=== PATIENT | male | born 1950 | race Two or more races ===

== ENCOUNTER 2022-10-08 14:07 | Inpatient (IN) | payer MEDICARE, MEDICAID ==
[~2022-10-08] VITALS: Ht 180.3 cm; Wt 138.4 kg
[2022-10-08] MEDS ORDERED: NS 1,000 ML IV ONE (14:50)
[2022-10-08 16:59] LABS: RSV AMPLIFICATION NEGATIVE (NEGATIVE)
[2022-10-08 17:11] LABS: VENOUS BASE EXCESS 0.2 (-2.0-2.0); VENOUS HCO3 24.9 MEQ/L (23.0-27.0); VENOUS O2 SATURATION 90.3 % (60.0-80.0); VENOUS PARTIAL PRESSURE CO2 40.4 mmHg (38.0-50.0); VENOUS PARTIAL PRESSURE O2 57.4 mmHg (30.0-50.0); VENOUS PH 7.407 UNITS (7.330-7.430); VENOUS STANDARD HCO3 24.5 MEQ/L; VENOUS TOTAL CO2 26.1 MEQ/L (24.0-28.0)
[2022-10-08 17:24] LABS: BASO % 0.4 % (0.0-1.0); EOS # 0.1 10^3/uL (0.0-0.5); EOS % 0.8 % (0.0-3.0); HEMATOCRIT 42.8 % (42.0-52.0); HEMOGLOBIN 14.2 g/dl (13.5-17.5); LYMPH # 0.6 10^3/uL (1.5-5.0); LYMPH % 6.2 % (24.0-44.0); MEAN CORPUSCULAR HGB CONC 33.2 g/dl (32.0-36.5); MEAN CORPUSCULAR VOLUME 93.4 fl (80.0-96.0); MONO # 0.5 10^3/uL (0.0-0.8); MONO % 4.9 % (2.0-8.0); NEUTROPHILS # 8.4 10^3/uL (1.5-8.5); NEUTROPHILS % 87.3 % (36.0-66.0); PLATELET COUNT, AUTOMATED 245 10^3/uL (150-450); RED BLOOD COUNT 4.58 10^6/uL (4.30-6.10); WHITE BLOOD COUNT 9.6 10^3/uL (4.0-10.0)
[2022-10-08 17:44] LABS: CK-MB VALUE MASS < 1.0 NG/ML (<3.6); LIPASE 35 U/L (12-53)
[2022-10-08 17:46] LABS: CPK CREATINE PHOSPHOKINASE 65 U/L (46-171); MB/CK RELATIVE INDEX 1.53 (< OR =4)
[2022-10-08 17:49] LABS: ALBUMIN 3.1 G/DL (3.2-5.2); ALKALINE PHOSPHATASE 69 U/L (46-116); ALT/SGPT 55 U/L (7.0-40); AST/SGOT 56 U/L (<34); BILIRUBIN,DIRECT 0.2 MG/DL (<0.4); BILIRUBIN,TOTAL 0.4 MG/DL (0.3-1.2); BLOOD UREA NITROGEN 21 MG/DL (9-23); CARBON DIOXIDE LEVEL 27 MMOL/L (20-31); CHLORIDE LEVEL 104 MMOL/L (98-107); CREATININE FOR GFR 1.09 MG/DL (0.70-1.30); GLOMERULAR FILTRATION RATE > 60.0 (>42); GLUCOSE, FASTING 135 MG/DL (74-106); MAGNESIUM LEVEL 1.9 MG/DL (1.8-2.4); POTASSIUM SERUM 4.3 MMOL/L (3.5-5.1); SODIUM LEVEL 139 MMOL/L (136-145); TOTAL PROTEIN 6.4 G/DL (5.7-8.2)
[2022-10-08 18:01] LABS: OSMOLALITY SERUM 292 MOSM/KG (280-301)
[2022-10-08 18:30] LABS: HEMOGLOBIN A1c 6.9 % (4.0-6.0)
[2022-10-08] MEDS ORDERED: FUROSEMIDE 40MG/4ML VIAL IV ONE (20:20)
[2022-10-08] MEDS: INSULIN LISPRO (NovoLOG) PER UNIT SC SCH (21:00)
[2022-10-08] MEDS ORDERED: ACETAMINOPHEN TAB 650MG DOSE (2X325MG) PO PRN (21:15)
[2022-10-08] MEDS ORDERED: GLUCAGON INJ 1MG VIAL SC PRN (21:25)
[2022-10-08] MEDS ORDERED: DEXTROSE 50% 50ML SYRINGE IV PRN (21:25)
[2022-10-08] MEDS ORDERED: GLUCOSE 4GM CHEW TABLET PO PRN (21:25)
[2022-10-08 23:11] VITALS: BP 126/61
[2022-10-08] MEDS ORDERED: METF-839 PO (23:15)
[2022-10-08] MEDS ORDERED: INSUDET SC (23:15)
[2022-10-08] MEDS ORDERED: CYAN100050 PO (23:15)
[2022-10-08] MEDS ORDERED: FENO160T10 PO (23:15)
[2022-10-08] MEDS ORDERED: FURO40TA2 PO (23:15)
[2022-10-08] MEDS ORDERED: INVO300T PO (23:15)
[2022-10-08] MEDS ORDERED: INSUHUMDS SC (23:15)
[2022-10-08] MEDS ORDERED: VASC1CAP2 PO (23:15)
[2022-10-08] MEDS ORDERED: MULT400T10 PO (23:15)
[2022-10-08] MEDS ORDERED: GUAI200T6 PO (23:15)
[2022-10-08] MEDS ORDERED: ACET-907 PO (23:15)
[2022-10-08] MEDS ORDERED: D-20TAB PO (23:15)
[2022-10-08] MEDS ORDERED: RISP-9 PO (23:15)
[2022-10-08] MEDS ORDERED: TRUL0.5I SC (23:15)
[2022-10-08] MEDS ORDERED: ATOR80TA59 PO (23:15)
[2022-10-08] MEDS ORDERED: NYST1POW9 TOP (23:15)
[2022-10-08] MEDS ORDERED: LOPE2CAP PO (23:15)
[2022-10-08] MEDS ORDERED: ASPI-161 PO (23:15)
[2022-10-08] MEDS ORDERED: SYNT125T PO (23:15)
[2022-10-08] MEDS ORDERED: SERT50TA29 PO (23:15)
[2022-10-08] MEDS ORDERED: OCEA0.654 (23:15)
[2022-10-08] MEDS ORDERED: HOME MED LIST COMPLETE! XX SCH (23:20)
[2022-10-08] MEDS ORDERED: guaiFENesin 200 MG TAB PO PRN (23:30)
[2022-10-08] MEDS ORDERED: SODIUM CHLORIDE NASAL 0.65% SPRAY BTL (OCEAN) PRN (23:30)
[2022-10-09] MEDS: ENOXAPARIN 40MG/0.4ML SYRINGE (J1650 PER 10MG) SC SCH ×3 (00:30→20:15)
[2022-10-09] MEDS: ATORVASTATIN 20 MG TAB PO SCH ×2 (00:31→20:14)
[2022-10-09] MEDS: ASPIRIN 81MG ENTERIC TABLET PO SCH ×2 (00:31→20:14)
[2022-10-09] MEDS: LEVEMIR (INSULIN DETEMIR) 1 UNITS/0.01ML SC SCH ×3 (00:31→20:15)
[2022-10-09 05:40] VITALS: BP 128/61
[2022-10-09 05:58] LABS: HEMATOCRIT 42.4 % (42.0-52.0); HEMOGLOBIN 13.9 g/dl (13.5-17.5); MEAN CORPUSCULAR HEMOGLOBIN 30.5 pg (27.0-33.0); MEAN CORPUSCULAR HGB CONC 32.8 g/dl (32.0-36.5); MEAN CORPUSCULAR VOLUME 93.2 fl (80.0-96.0); PLATELET COUNT, AUTOMATED 236 10^3/uL (150-450); RED BLOOD COUNT 4.55 10^6/uL (4.30-6.10); WHITE BLOOD COUNT 7.7 10^3/uL (4.0-10.0)
[2022-10-09] MEDS: LEVOTHYROXINE 125MCG TABLET (0.125MG) PO SCH (06:23)
[2022-10-09 06:28] LABS: ALBUMIN 3.2 G/DL (3.2-5.2); ALKALINE PHOSPHATASE 66 U/L (46-116); ALT/SGPT 51 U/L (7.0-40); AST/SGOT 43 U/L (<34); BILIRUBIN,TOTAL 0.5 MG/DL (0.3-1.2); BLOOD UREA NITROGEN 21 MG/DL (9-23); CALCIUM LEVEL 8.7 MG/DL (8.3-10.6); CARBON DIOXIDE LEVEL 28 MMOL/L (20-31); CHLORIDE LEVEL 105 MMOL/L (98-107); CREATININE FOR GFR 1.07 MG/DL (0.70-1.30); GLOMERULAR FILTRATION RATE > 60.0 (>42); GLUCOSE, FASTING 142 MG/DL (74-106); MAGNESIUM LEVEL 2.1 MG/DL (1.8-2.4); POTASSIUM SERUM 3.7 MMOL/L (3.5-5.1); SODIUM LEVEL 141 MMOL/L (136-145); TOTAL PROTEIN 6.4 G/DL (5.7-8.2)
[2022-10-09] MEDS: NYSTATIN 100,000 UNITS/GM TOPICAL PWD 15GM TOP SCH ×2 (09:00→20:16)
[2022-10-09] MEDS: SERTRALINE HCL 50 MG TAB PO SCH (09:10)
[2022-10-09] MEDS: FENOFIBRATE 145MG TABLET (TRICOR) PO SCH (09:10)
[2022-10-09] MEDS: risperiDONE 2 MG TAB PO SCH (09:10)
[2022-10-09] MEDS: FUROSEMIDE 40 MG TAB PO SCH (09:11)
[2022-10-09] MEDS: INSULIN LISPRO (NovoLOG) PER UNIT SC SCH ×4 (09:13→20:15)
[2022-10-09 11:53] VITALS: O2SAT 92
[2022-10-09 13:23] LABS: INR 1.08; PROTHROMBIN TIME 14.2 SECONDS (12.5-14.5)
[2022-10-09 13:42] LABS: IRON (FE) 30 UG/DL (65-175)
[2022-10-09 13:43] LABS: PERCENT SATURATION 9.3 % (19.7-50.0); TOTAL IRON BINDING CAPACITY 322 UG/DL (250-425)
[2022-10-09 13:54] LABS: FOLATE > 24.00 NG/ML (>5.4)
[2022-10-09 13:55] LABS: VITAMIN B12 LEVEL 883 PG/ML (211-911)
[2022-10-09 14:10] LABS: HEPATITIS B SURFACE ANTIGEN NEGATIVE (NEGATIVE)
[2022-10-09 14:32] LABS: HEPATITIS B CORE ANTIBODY IGM NEGATIVE (NEGATIVE)
[2022-10-09] MEDS ORDERED: PNEUMOCOCCAL VACCINE 0.5ML SYRINGE (PNEUMOVAX 23) IM.IMMUN ONE (15:00)
[2022-10-09 15:17] VITALS: BP 122/72
[2022-10-09 19:12] LABS: FERRITIN 119.5 NG/ML (10.5-307.3)
[2022-10-09 20:50] VITALS: BP 143/49
[2022-10-10] MEDS: LEVOTHYROXINE 125MCG TABLET (0.125MG) PO SCH (05:02)
[2022-10-10 06:00] VITALS: BP 141/69
[2022-10-10 06:08] LABS: CHOLESTEROL RISK RATIO 5.36 (<5); LDL CHOLESTEROL 41.2 MG/DL (<100)
[2022-10-10] MEDS: FENOFIBRATE 145MG TABLET (TRICOR) PO SCH (08:15)
[2022-10-10] MEDS: FUROSEMIDE 40 MG TAB PO SCH (08:15)
[2022-10-10] MEDS: SERTRALINE HCL 50 MG TAB PO SCH (08:15)
[2022-10-10] MEDS: risperiDONE 2 MG TAB PO SCH (08:15)
[2022-10-10] MEDS: LEVEMIR (INSULIN DETEMIR) 1 UNITS/0.01ML SC SCH ×2 (08:16→20:26)
[2022-10-10] MEDS: ENOXAPARIN 40MG/0.4ML SYRINGE (J1650 PER 10MG) SC SCH ×2 (08:16→20:26)
[2022-10-10] MEDS: INSULIN LISPRO (NovoLOG) PER UNIT SC SCH ×4 (08:16→19:56)
[2022-10-10] MEDS: NYSTATIN 100,000 UNITS/GM TOPICAL PWD 15GM TOP SCH ×2 (08:17→20:26)
[2022-10-10] MEDS ORDERED: FERRIC CARBOXYMALTOSE INJ 1,000 MG, VIAL MATE ADAPTER 1 EACH in NS 250 ML IV ONE (10:00)
[2022-10-10 14:00] VITALS: BP 150/55
[2022-10-10] MEDS: ATORVASTATIN 20 MG TAB PO SCH (20:25)
[2022-10-10] MEDS: ASPIRIN 81MG ENTERIC TABLET PO SCH (20:26)
[2022-10-10 21:00] VITALS: BP 131/56
[2022-10-11 00:07] VITALS: O2SAT 94
[2022-10-11] MEDS: LEVOTHYROXINE 125MCG TABLET (0.125MG) PO SCH (05:47)
[2022-10-11 05:55] VITALS: BP 136/62
[2022-10-11] MEDS: SERTRALINE HCL 50 MG TAB PO SCH (08:50)
[2022-10-11] MEDS: LEVEMIR (INSULIN DETEMIR) 1 UNITS/0.01ML SC SCH ×2 (08:50→21:01)
[2022-10-11] MEDS: INSULIN LISPRO (NovoLOG) PER UNIT SC SCH ×4 (08:50→20:53)
[2022-10-11] MEDS: ENOXAPARIN 40MG/0.4ML SYRINGE (J1650 PER 10MG) SC SCH ×2 (08:51→21:01)
[2022-10-11] MEDS: FUROSEMIDE 40 MG TAB PO SCH (08:51)
[2022-10-11] MEDS: risperiDONE 2 MG TAB PO SCH (08:51)
[2022-10-11] MEDS: NYSTATIN 100,000 UNITS/GM TOPICAL PWD 15GM TOP SCH ×2 (09:13→21:02)
[2022-10-11 14:00] VITALS: BP 128/50
[2022-10-11] MEDS: ASPIRIN 81MG ENTERIC TABLET PO SCH (21:01)
[2022-10-11] MEDS: ATORVASTATIN 20 MG TAB PO SCH (21:01)
[2022-10-11 23:34] VITALS: O2SAT 93
[2022-10-12] MEDS: LEVOTHYROXINE 125MCG TABLET (0.125MG) PO SCH (05:32)
[2022-10-12 06:00] VITALS: BP 140/65
[2022-10-12 09:00] VITALS: O2SAT 92
[2022-10-12] MEDS: NYSTATIN 100,000 UNITS/GM TOPICAL PWD 15GM TOP SCH (09:00)
[2022-10-12] MEDS: risperiDONE 2 MG TAB PO SCH (09:41)
[2022-10-12] MEDS: ENOXAPARIN 40MG/0.4ML SYRINGE (J1650 PER 10MG) SC SCH (09:42)
[2022-10-12] MEDS: INSULIN LISPRO (NovoLOG) PER UNIT SC SCH ×2 (09:43→13:18)
[2022-10-12] MEDS: FUROSEMIDE 40 MG TAB PO SCH (09:44)
[2022-10-12] MEDS: LEVEMIR (INSULIN DETEMIR) 1 UNITS/0.01ML SC SCH (09:44)
[2022-10-12] MEDS: SERTRALINE HCL 50 MG TAB PO SCH (09:44)
[2022-10-12 09:45] VITALS: BP 137/61
== END 2022-10-12 13:43 | disposition home health service (06) | DRG 948 ==
LOC: M ED 14:07 → M ED INP 14:08 → ENRESERV 22:17 → M MSPAV 23:09 → OBSVTOIN 10-10 10:13
PROVIDERS: ADMIT Family Medicine; ATTEND Student in an Organized Health Care Education/Training Program
DX: R53.1 Weakness (principal); Z68.41 Body mass index [BMI] 40.0-44.9, adult; F20.9 Schizophrenia, unspecified; G31.84 Mild cognitive impairment of uncertain or unknown etiology; E78.5 Hyperlipidemia, unspecified; E11.65 Type 2 diabetes mellitus with hyperglycemia; E03.9 Hypothyroidism, unspecified; E66.9 Obesity, unspecified; L89.151 Pressure ulcer of sacral region, stage 1; F32.A Depression, unspecified; F41.9 Anxiety disorder, unspecified; R74.01 Elevation of levels of liver transaminase levels; K76.0 Fatty (change of) liver, not elsewhere classified; D50.9 Iron deficiency anemia, unspecified; I10 Essential (primary) hypertension; Z79.82 Long term (current) use of aspirin; K21.9 Gastro-esophageal reflux disease without esophagitis; Z79.890 Hormone replacement therapy; Z79.4 Long term (current) use of insulin; Z79.899 Other long term (current) drug therapy